=== PATIENT | female | born 1990 | race American Indian/Alaskan Native ===

== ENCOUNTER 2018-12-20 01:24 | Emergency (ER) | payer MEDICAID ==
[2018-12-20 01:43] VITALS: BP 135/82
[2018-12-20] MEDS ORDERED: IBUPROFEN PO ONE (01:58)
--- NOTE | 2018-12-20 02:03 | Emergency Department Report ---
ED Chest Pain HPI - General Chief Complaint: Chest Pain Stated Complaint: CHEST PAIN Time Seen by Provider: 12/20/18 01:57 Source: patient Mode of arrival: Ambulatory Limitations: No Limitations - History of Present Illness Initial Comments: 28-year-old -Al[place]ian female comes in complaining of chest pain that located in the middle of her chest and the left side of chest that has been giving her problems for the last couple of months but was worse today. Patient reports that the pain is worse with deep breaths and it feels like something is stabbing her when she deep breathes. Patient reports her heartbeat finding. Patient denies any radiation of pain denies nausea, vomiting or sweating. Patient does admit that she smokes cigarettes 4 cigarettes a day she's been spoken for 3-4 years. 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 Patient denies any recent travels no history of any cancers. She's had one hospitalization in 2016 for similar implants. She has no known drug allergies currently takes no medications on a daily basis. MD Complaint: chest pain - Related Data Previous Rx's Medication Instructions Recorded Last Taken Type Ibuprofen [Motrin 800 MG tab] 800 mg PO Q8HR PRN #15 tablet 12/20/18 Unknown Rx Allergies Allergy/AdvReac Type Severity Reaction Status Date / Time No Known Allergies Allergy Unverified 12/20/18 01:43 Heart Score - HEART Score History: Slightly suspicious EKG: Normal Age: < 45 Risk factors: No known risk factors Troponin: < normal limit HEART Score: 0 ED Review of Systems ROS: Stated complaint: CHEST PAIN Other details as noted in HPI Comment: All other systems reviewed and negative Cardiovascular: chest pain ED Past Medical Hx - Past Medical History Previous Medical History?: No - Surgical History Past Surgical History?: Yes Additional Surgical History: C-Sec X 4 - Social History Smoking Status: Current Every Day Smoker Substance Use Type: Alcohol - Medications Home Medications: Home Medications Medication Instructions Recorded Confirmed Last Taken Type Ibuprofen [Motrin 800 MG tab] 800 mg PO Q8HR PRN #15 tablet 12/20/18 Unknown Rx ED Physical Exam - General Limitations: No Limitations General appearance: alert, in no apparent distress - Head Head exam: Present: atraumatic, normocephalic - Eye Eye exam: Present: EOMI - ENT ENT exam: Present: mucous membranes moist - Neck Neck exam: Present: normal inspection, full ROM - Respiratory Respiratory exam: Present: normal lung sounds bilaterally, chest wall tenderness. Absent: respiratory distress, wheezes, accessory muscle use - Cardiovascular Cardiovascular Exam: Present: tachycardia - GI/Abdominal GI/Abdominal exam: Present: soft, normal bowel sounds. Absent: distended, tenderness - Back Exam Back exam: Present: normal inspection - Neurological Exam Neurological exam: Present: alert, oriented X3 - Psychiatric Psychiatric exam: Present: normal affect, normal mood - Skin Skin exam: Present: warm, dry, intact, normal color. Absent: rash ED Course Vital Signs 12/20/18 12/20/18 01:30 02:05 Temperature 99.2 F Pulse Rate 96 H Respiratory 18 16 Rate Blood Pressure 135/82 O2 Sat by Pulse 100 100 Oximetry YUNI score - Yuni Score Age > 65: (0) No Aspirin use within the Past 7 Days: (0) No 3 or more CAD Risk Factors: (0) No 2 or more Angina events in past 24 hrs: (0) No Known CAD with more than 50% Stenosis: (0) No Elevated Cardiac Markers: (0) No ST Deviation Greater than 0.5mm: (0) No YUNI Score: 0 ED Medical Decision Making - Lab Data Result diagrams: 12/20/18 02:03 12/20/18 02:03 - Radiology Data Radiology results: report reviewed FINAL REPORT PROCEDURE: XR CHEST ROUTINE 2V TECHNIQUE: PA and lateral chest radiographs were obtained. CPT 89176 HISTORY: chest pain COMPARISON: No prior studies are available for comparison. FINDINGS: Heart: Normal. Mediastinum/Vessels: Normal. Lungs/Pleural space: Normal. Bony thorax: No acute osseous abnormality. Other: IMPRESSION: Normal examination. Transcribed By: CO Dictated By: ISAIAS WATSON MD Electronically Authenticated By: ISAIAS WATSON MD Signed Date/Time: 12/20/18317 DD/ 9 TD/TT: 12/20/18319 - Medical Decision Making Patient has been evaluated by this provider in fast track. Ibuprofen 600 mg given for pain management. Chest pain protocol has been placed. EKG will normal examination. Chest x-ray negative Negative troponin negative d-dimer Patient be discharged home with costochondritis since patient had reproducible chest pain. Patient responded to ibuprofen. Discussed patient she needs follow-up with the primary care provider. Patient verbalized understanding Critical care attestation.: If time is entered above; I have spent that time in minutes in the direct care of this critically ill patient, excluding procedure time. ED Disposition Clinical Impression: Costochondritis, acute, Tobacco abuse counseling Disposition: TO HOME OR SELFCARE Is pt being admited?: No Does the pt Need Aspirin: No Condition: Stable Instructions: Costochondritis (ED) Additional Instructions: Please take pain medication as prescribed. Is very important for you to follow up with the primary care provider I have listed their information below for your convenience. I encouraged her to stop smoking cigarettes. Prescriptions: Ibuprofen [Motrin 800 MG tab] 800 mg PO Q8HR PRN #15 tablet PRN Reason: Pain , Severe (7-10) Referrals: [facility] [Provider Group] - 3-5 Days Forms: Work/School Release Form(ED), Accompanied Note
[2018-12-20 02:14] LABS: Basophils % (Auto) 0.5 % (0.0-1.8); Eosinophils # (Auto) 0.1 K/mm3 (0.0-0.4); Eosinophils % (Auto) 0.6 % (0.0-4.3); Hematocrit 37.1 % (30.3-42.9); Lymphocytes % (Auto) 22.3 % (13.4-35.0); Mean Corpuscular HGB Conc 33 % (30-34); Mean Corpuscular Volume 78 fl (79-97); Monocytes # (Auto) 0.4 K/mm3 (0.0-0.8); Monocytes % (Auto) 4.6 % (0.0-7.3); Platelet Count 203 K/mm3 (140-440); Red Blood Count 4.78 M/mm3 (3.65-5.03); Red Cell Distribution Width 15.7 % (13.2-15.2)
[2018-12-20 02:34] LABS: BUN/Creatinine Ratio 11; Blood Urea Nitrogen 8 mg/dL (7-17); Hemolysis Index 2
--- NOTE | 2018-12-20 03:18 | XRay Report ---
FINAL REPORT PROCEDURE: XR CHEST ROUTINE 2V TECHNIQUE: PA and lateral chest radiographs were obtained. CPT 53286 HISTORY: chest pain COMPARISON: No prior studies are available for comparison. FINDINGS: Heart: Normal. Mediastinum/Vessels: Normal. Lungs/Pleural space: Normal. Bony thorax: No acute osseous abnormality. Other: IMPRESSION: Normal examination.
== END 2018-12-20 03:43 | disposition home or self-care (01) ==
LOC: ED 01:24
DX: M94.0 Chondrocostal junction syndrome [Tietze] (principal); F17.200 Nicotine dependence, unspecified, uncomplicated
CPT/HCPCS: 36415; 71046; 80048; 84484; 84703; 85025; 85379; 93005; 93010; 99284

== ENCOUNTER 2019-01-09 15:31 | Emergency (ER) | payer MEDICAID ==
--- NOTE | 2019-01-09 16:02 | Emergency Department Report ---
Blank Doc - Documentation Documentation: 28 y o female presents with dental abscess at back of teeth with pain with swal lowing x 2 weeks states dentist appt on [place] but pain is worsened. No airway compromise meds- abx, pain reevaluate
[2019-01-09 16:03] VITALS: BP 156/97
[2019-01-09] MEDS ORDERED: IBUPROFEN PO ONE (19:26)
--- NOTE | 2019-01-09 19:30 | Emergency Department Report ---
ED ENT HPI - General Chief complaint: Sore Throat Stated complaint: MOUTH PAIN/DIFFCULT SWALLOWING Time Seen by Provider: 01/09/19 16:00 Source: patient Mode of arrival: Ambulatory Limitations: No Limitations - History of Present Illness Initial comments: 28-year-old Czech female presents to the emergency room for pain to her right third molars with difficulty swallowing since Sunday. She reports that she is aware she has a bad tooth in the back of her right lower jaw. Patient reports that she has a dental appointment on Sunday. Patient denies any fever or chills, nausea vomiting, no sick contact. Patient does not have a primary care provider. She has no past medical history currently takes no medications on a daily basis and has no known drug allergies. MD complaint: tooth pain -: days(s) (3) Location: tooth # (31) Severity: severe Severity scale (0 -10): 10 Quality: stabbing, aching, constant Consistency: constant Improves with: none Worsens with: swallowing Context- Dental: history of dental caries Associated Symptoms: gum swelling, toothache - Related Data Previous Rx's Medication Instructions Recorded Last Taken Type Ibuprofen [Motrin 800 MG tab] 800 mg PO Q8HR PRN #15 tablet 12/20/18 Unknown Rx Amoxicillin [Amoxicillin TAB] 875 mg PO BID #20 tablet 01/09/19 Unknown Rx Chlorhexidine Mouthwash [Peridex] 15 ml MM BID #1 bottle 01/09/19 Unknown Rx traMADol [Ultram 50 MG tab] 50 mg PO Q6HR PRN #12 tablet 01/09/19 Unknown Rx Allergies Allergy/AdvReac Type Severity Reaction Status Date / Time No Known Allergies Allergy Verified 01/09/19 16:00 ED Dental HPI - General Chief complaint: Sore Throat Stated complaint: MOUTH PAIN/DIFFCULT SWALLOWING Time Seen by Provider: 01/09/19 16:00 Source: patient Mode of arrival: Ambulatory Limitations: No Limitations - Related Data Previous Rx's Medication Instructions Recorded Last Taken Type Ibuprofen [Motrin 800 MG tab] 800 mg PO Q8HR PRN #15 tablet 12/20/18 Unknown Rx Amoxicillin [Amoxicillin TAB] 875 mg PO BID #20 tablet 01/09/19 Unknown Rx Chlorhexidine Mouthwash [Peridex] 15 ml MM BID #1 bottle 01/09/19 Unknown Rx traMADol [Ultram 50 MG tab] 50 mg PO Q6HR PRN #12 tablet 01/09/19 Unknown Rx Allergies Allergy/AdvReac Type Severity Reaction Status Date / Time No Known Allergies Allergy Verified 01/09/19 16:00 ED Review of Systems ROS: Stated complaint: MOUTH PAIN/DIFFCULT SWALLOWING Other details as noted in HPI Comment: All other systems reviewed and negative ENT: dental pain ED Past Medical Hx - Surgical History Additional Surgical History: C-Sec X 4 - Social History Smoking Status: Current Every Day Smoker Substance Use Type: None - Medications Home Medications: Home Medications Medication Instructions Recorded Confirmed Last Taken Type Ibuprofen [Motrin 800 MG tab] 800 mg PO Q8HR PRN #15 tablet 12/20/18 Unknown Rx Amoxicillin [Amoxicillin TAB] 875 mg PO BID #20 tablet 01/09/19 Unknown Rx Chlorhexidine Mouthwash [Peridex] 15 ml MM BID #1 bottle 01/09/19 Unknown Rx traMADol [Ultram 50 MG tab] 50 mg PO Q6HR PRN #12 tablet 01/09/19 Unknown Rx ED Physical Exam - General Limitations: No Limitations General appearance: alert, in no apparent distress - Head Head exam: Present: atraumatic, normocephalic - Eye Eye exam: Present: normal appearance, EOMI - Expanded ENT Exam Expanded Teeth exam: Present: dental caries, dental tenderness # (31), gingival enlargement - Neck Neck exam: Present: tenderness, full ROM. Absent: lymphadenopathy - Respiratory Respiratory exam: Present: normal lung sounds bilaterally. Absent: respiratory distress - Cardiovascular Cardiovascular Exam: Present: regular rate, normal rhythm. Absent: systolic murmur, diastolic murmur, rubs, gallop - Neurological Exam Neurological exam: Present: alert, oriented X3 - Psychiatric Psychiatric exam: Present: normal affect, normal mood - Skin Skin exam: Present: warm, dry, intact, normal color. Absent: rash ED Course Vital Signs 01/09/19 16:00 Temperature 99.1 F Pulse Rate 66 Respiratory 18 Rate Blood Pressure 156/97 O2 Sat by Pulse 100 Oximetry ED Medical Decision Making - Medical Decision Making Patient has been evaluated by this provider in fast track. Ibuprofen given for pain management Patient be discharged home on clindamycin 300 mg 3 times a day for 10 days, tramadol 50 mg every 6 hours and ibuprofen 800 mg every 8 hours when necessary. Patient also be sent home with Peridex mouthwash to use twice a day. Patient is to keep her appointment on Sunday with her dentist. Critical care attestation.: If time is entered above; I have spent that time in minutes in the direct care of this critically ill patient, excluding procedure time. ED Disposition Clinical Impression: Dental abscess Disposition: TO HOME OR SELFCARE Is pt being admited?: No Does the pt Need Aspirin: No Condition: Stable Instructions: Dental Abscess (ED), Toothache (ED), Dental Caries (ED) Additional Instructions: Please take prescribed medication as prescribed. Keep your appointment for Sunday with her dentist. Return to the emergency room sooner have worsening swallowing. Prescriptions: Amoxicillin [Amoxicillin TAB] 875 mg PO BID #20 tablet Chlorhexidine Mouthwash [Peridex] 15 ml MM BID #1 bottle traMADol [Ultram 50 MG tab] 50 mg PO Q6HR PRN #12 tablet PRN Reason: Pain Referrals: FIORDALIZA ALONSO [Primary Care Provider] - 3-5 Days [facility] [Outside] - 3-5 Days [facility] [Outside] - 3-5 Days [facility] [Outside] - 3-5 Days Forms: Work/School Release Form(ED)
== END 2019-01-09 19:46 | disposition home or self-care (01) ==
LOC: ED 15:31
DX: K04.7 Periapical abscess without sinus (principal); F17.200 Nicotine dependence, unspecified, uncomplicated
CPT/HCPCS: 99282